=== PATIENT | female | born 1990 ===

== ENCOUNTER 2018-04-04 00:55 | Emergency (ER) | payer MEDICAID ==
[2018-04-04 01:29] VITALS: RESP 18; O2SAT 100
[2018-04-04 01:51] LABS: BASO # 0.1 K/uL (0.0-0.2); BASO % 1.2 % (0.0-2.0); EOS # 0.2 K/uL (0.0-0.7); HEMOGLOBIN 14.4 g/dL (11.0-16.0); LYMPH % 33.1 % (20.0-40.0); MEAN CELL VOLUME 85.8 fL (81.0-99.0); MEAN CORPUSCULAR HEMOGLOBIN 28.6 pg (27.0-31.0); MEAN CORPUSCULAR HGB CONC 33.3 g/dL (33.0-37.0); MEAN PLATELET VOLUME 7.5 fL (7.2-11.7); MONO # 1.1 K/uL (0.0-0.8); MONO % 9.3 % (0.0-10.0); NEUT # 6.6 K/uL (1.8-7.0); NEUT % 54.4 % (50.0-75.0); RBC 5.02 Mil/uL (3.80-5.20); RED CELL DISTRIBUTION WIDTH 14.1 % (11.5-14.5); WHITE BLOOD COUNT 12.1 K/uL (4.8-10.8)
[2018-04-04 01:56] LABS: SQUAMOUS EPITHIAL 13 /hpf (0-5); URINE BACTERIA OCC (<OCC); URINE BILIRUBIN NEGATIVE (NEGATIVE); URINE BLOOD NEGATIVE (NEGATIVE); URINE CLARITY Hazy (Clear); URINE COLOR Yellow (YELLOW); URINE GLUCOSE (UA) NORMAL (Normal); URINE LEUKOCYTE ESTERASE NEG Leu/uL (Negative); URINE PROTEIN NEGATIVE (NEGATIVE); URINE UROBILINOGEN NORMAL mg/dL (0.2-1.0)
[2018-04-04 02:31] LABS: ALB/GLOB RATIO 1.3 (1.0-2.1); ALBUMIN 4.1 g/dL (3.5-5.0); ALT/SGPT 45 U/L (9-52); AST/SGOT 19 U/L (14-36); BLOOD UREA NITROGEN 16 mg/dL (7-17); GFR NON-AFRICAN AMERICAN > 60
[2018-04-04 04:14] VITALS: BP 101/64; PULSE 80; TEMP 98.5
--- NOTE | 2018-04-04 04:26 | C.PDOC ---
History Of Present Illness 27 y/o female presents to the ED complaining of lower abdominal pain for 1 day. Patient is . States that she found out she was 4 days ago. Otherwise she denies any nausea, vomiting, vaginal bleeding, or dysuria. Chief Complaint (Nursing): Abdominal Pain History Per: Patient History/Exam Limitations: no limitations Onset/Duration Of Symptoms: Days (x1) Current Symptoms Are (Timing): Still Present Location Of Pain/Discomfort: Suprapubic Associated Symptoms: denies: Nausea, Vomiting, Urinary Symptoms Abnormal Vaginal Bleeding: No : 6 Para: 1 Past Medical History Reviewed: Historical Data, Nursing Documentation, Vital Signs Vital Signs: Last Vital Signs Temp 98 F 04/04/18 01:25 Pulse 74 04/04/18 01:25 Resp 18 04/04/18 01:25 BP 101/70 04/04/18 01:25 Pulse Ox 100 04/04/18 01:25 Surgical History: No Surg Hx Family History: States: No Known Family Hx - Social History Hx Tobacco Use: No Hx Alcohol Use: No Hx Substance Use: No - Immunization History Hx Tetanus Toxoid Vaccination: No Hx Influenza Vaccination: No Hx Pneumococcal Vaccination: No Review Of Systems Except As Marked, All Systems Reviewed And Found Negative. Constitutional: Negative for: Fever, Chills Respiratory: Negative for: Shortness of Breath Gastrointestinal: Positive for: Abdominal Pain. Negative for: Nausea, Vomiting Genitourinary: Negative for: Dysuria, Vaginal Bleeding Neurological: Negative for: Headache, Dizziness Physical Exam - Physical Exam Appears: Non-toxic, No Acute Distress Skin: Normal Color, Warm, Dry Head: Atraumatic, Normacephalic Eye(s): bilateral: Normal Inspection, PERRL, EOMI Neck: Normal ROM Chest: Symmetrical Cardiovascular: Rhythm Regular, No Murmur Respiratory: Normal Breath Sounds, No Accessory Muscle Use, Other (Speaking in full sentences) Gastrointestinal/Abdominal: Soft, No Tenderness, No Guarding, No Rebound Extremity: Bilateral: Atraumatic, Normal Color And Temperature, Normal ROM Neurological/Psych: Oriented x3, Normal Speech ED Course And Treatment - Laboratory Results Result Diagrams: 04/04/18 01:47 04/04/18 01:47 O2 Sat by Pulse Oximetry: 100 (RA) Pulse Ox Interpretation: Normal - CT Scan/US US Other Rad Studies (CT/US): Read By Radiologist, Radiology Report Reviewed CT/US Interpretation: Name:SCOTTY CHRISTIE Exam Date:Apr 04, 2018 2:19:37 AM EDT. Modality Type:SD\US\SR. Description:US - OB 1ST TRIMESTER. Gender:F Laterality:Not applicable. :89 Referring Physician:Alistair Munoz (DO). EXAM: US Obstetrical, Complete <14 weeks. CLINICAL HISTORY: with abdominal pain. TECHNIQUE: Transvaginal and transabdominal imaging of the maternal pelvis and a <14 week gestation with image documentation. COMPARISON: None provided. FINDI NGS: GESTATION: Single IUP is noted. Gestational sac is 0.95 mm, too small to estimate age. Yolk sac is seen. No pole or FHR. UTERUS: Unremarkable. No myometrial mass. CERVIX: Closed. Unremarkable. OVARIES: Unremarkable right ovary. 1.8 cm left ovarian corpus lutheum cyst. FREE FLUID: No free fluid. IMPRESSION: Single intrauterine . Gestational sac is 0.95 mm, too small to estimate age. No acute abnormality. Consider follow up study in 7-10 days if clinically warranted at that time. . Electronically signed on Apr 04, 2018 3:17:26 AM EDT by: Alistair Corado M.D., RICCI Certified By ABR & CBC[employer]. Fellowship Trained MRI and CT Specialist Medical Decision Making Medical Decision Making: Impression: Abdominal pain during , r/o ectopic Initial Plan: --Blood work --type/screen --Urinalysis --/OB US Beta-HC.8 Patient counseled regarding lab and US results. Advised to follow up with the clinic or OBGYN for further evaluation. Disposition Counseled Patient/Family Regarding: Studies Performed, Diagnosis, Need For Followup - Disposition Referrals: [facility] [Outside] [facility] [Outside] Arvind Samayoa MD [Primary Care Provider] - Disposition: HOME/ ROUTINE Disposition Time: 03:45 Condition: GOOD Additional Instructions: SHAHNAZ FAJARDO, thank you for letting us take care of you today. The emergency medical care you received today was directed at your acute symptoms. If you were prescribed any medication, please fill it and take as directed. It may take several days for your symptoms to resolve. Return to the Emergency Department if your symptoms worsen, do not improve, or if you have any other problems. Please contact your doctor or call one of the physicians/clinics you have been referred to that are listed on the Patient Visit Information form that is included in your discharge packet. Bring any paperwork you were given at discharge with you along with any medications you are taking to your follow up visit. Our treatment cannot replace ongoing medical care by a primary care provider outside of the emergency department. Thank you for allowing the [facility] team to be part of your care today. Follow up with your OB doctor this week for re-evaluation and further management. Prescriptions: Vit No.126/Iron/Folic [Classic Tablet] 1 each PO DAILY #30 tablet Instructions: - The First Month Forms: [employer] (Armenian) - POA Present On Arrival: None - Clinical Impression Clinical Impression: - Scribe Statement The provider has reviewed the documentation as recorded by the Scribe (Lacy García) Provider Attestation: All medical record entries made by the Scribe were at my direction and personally dictated by me. I have reviewed the chart and agree that the record accurately reflects my personal performance of the history, physical exam, medical decision making, and the department course for this patient. I have also personally directed, reviewed, and agree with the discharge instructions and disposition.
--- NOTE | 2018-04-04 08:38 | US ---
Pelvic ultrasound HISTORY: . COMPARISON: None available. TECHNIQUE: Real-time sonography was performed through the pelvis. FINDINGS: Uterus: 9.0 x 4.7 x 4.9 centimeters. Heterogeneous echotexture. Anteverted. Cervix measures 2.9 centimeters. Small anechoic foci noted within the uterus suggestive for an intrauterine gestational sac measuring 9.5 millimeters. This is too small to estimate gestational age. Yolk sac identified measuring 2 millimeters. Right ovary: 2.1 x 1.5 x 2.1 centimeters. Normal flow. Left ovary: 2.1 x 1.9 x 2.4 centimeters. Normal flow. Heterogeneous hyperechoic probable corpus luteal cyst measuring 1.7 x 1.4 x 1.8 centimeters. Impression: Small anechoic foci noted within the uterus suggestive for an intrauterine gestational sac measuring 9.4 millimeters. This is too small to estimate gestational age. Yolk sac identified. Heterogeneous probable corpus luteal cyst measuring 1.8 centimeters at the level of the left adnexa. Limited 1st trimester ultrasound for viability purposes only. Continued interval followup with serial ultrasound, serial hCG levels, and gynecological consultation would be helpful if clinically indicated. These findings were preliminarily reported at 3:17 a.m. on 04/04/[address] Alistair Corado from [facility].
== END 2018-04-04 04:10 | disposition home or self-care (01) ==
LOC: SUPCPDRO 00:55 → C.ER 00:55
DX: O26.891 Other specified pregnancy related conditions, first trimester (principal); R10.30 Lower abdominal pain, unspecified